=== PATIENT | female | born 1935 | race Caucasian/White ===

== ENCOUNTER 2025-01-24 16:22 | Inpatient (IN) | payer MEDICARE, BC, SELFPAY ==
[2025-01-24 13:03] VITALS: BP 109/63
[2025-01-24 14:07] VITALS: BMI 24.9
--- NOTE | 2025-01-24 14:08 | ED.GENMED ---
History of Present Illness
General
Chief Complaint: Skin Problem
Source: patient
Exam Limitations: none
Time Seen by Provider: 01/24/25 13:45
History of Present Illness
History of Present Illness:
89yo right hand dominant female with a history of atrial fibrillation, CHF, hypertension, hyperlipidemia, and AYDE on CPAP presenting for evaluation of a left middle finger infection. Patient was bitten by her son's dog 2 days ago. Dog is
domesticated and up-to-date on rabies vaccinations. She started to experience pain and redness to the finger yesterday. She was seen by her ward attendant and was started on a course of Augmentin. The area of redness was marked with a skin marker.
The redness is spreading to the dorsum of her hand today. She was seen at wound care and was sent to the ED for IV antibiotics. She denies any fevers or chills. No history of diabetes. Last Tdap in 2019.
Past History
Past History
ED Past Medical History: Arrthythmia (Atrial fib. On Xarelto), CHF, COPD, HTN and Hypercholesterolemia
ED Past Surgical History: Cardiac (Pacemaker )
Patient has exhibited threatening behavior?: No
PSI?: No
Social History
Tobacco: Non-smoker
Alcohol: None
Personal:
Living: with family
Employment: Retired
Family History
Family History: Other (Noncontributory)
Phy Exam
General Physical Exam
General Presentation: well appearing and no apparent distress
General age: appears stated age
General Skin: warm and dry
General Habitus: normal
General Mental: alert
ENT Exam
ENT Exam: normocephalic
Neurological Exam
Neurological Exam: alert
Musculoskeletal Exam
Musculoskeletal Exam: other (L middle finger: Gaping laceration noted to the proximal dorsal digit with puncture wounds distally. There is erythema and swelling throughout digit that extends to the dorsum of the hand. Not held in flexion and there
is no tenderness along the flexor sheath. )
Skin Exam
Skin Exam: warm/dry
Psychiatric Exam
Psychiatric Exam: normal mood/affect
Course
Orders/Labs/Results
Orders:
Orders
01/24/25 13:03
CR Hand - Left Min 3 Views Urgent
Comment:
Reason For Exam: dog bite, swelling
01/24/25 14:07
Acetaminophen [Tylenol] 650 mg PO NOW STA
01/24/25 14:26
Complete Blood Count/With Diff Urgent
01/24/25 14:49
Ampicillin/Sulbactam 3 G [Unasyn] 3 gm 0.9% Sodium Chloride 100 ml [Nss] 100 ml IV NOW
01/24/25 15:03
Comprehensive Metabolic Panel Urgent
01/24/25 15:54
Admit/Transfer Patient As Directed
Co-Sign Provider:
Level of Care: Inpatient admission
Assign to:: Medical/Surgical
Physician / Group: Htay
Diagnosis: Dog Bite Cellulitis
Reason for Hospitalization: IV abx
Expected length of stay greater than two midnights?: Yes
ELOS- Estimated Length of Stay in days: 3
I certify the patient meets the requirements for IP care: Yes
01/24/25 15:55
PRN Pain Medication Management As Directed
May give lesser potent ordered pain med per pt: Yes
preference::
Protocol:: Medication orders for pain may be administered in a
manner that supports deferring to patient preference
when the pt is:
- Requesting an ordered lesser potent pain medication.
Least to most potent pain medications are defined
as: acetaminophen < NSAID < tramadol < opioids
(morphine, oxycodone, hydromorphone).
- Requesting a lesser dose of the same medication IF
ORDERED.
- Requesting a less intrusive route of administration
if both routes are prescribed by the provider (PO <
IV).
01/24/25 15:56
Code Status As Directed
Resuscitation Status: Full Code
Abnormal Lab Results
01/24/25 01/24/25
14:26 15:03
MCHC 32.9 L g/dL
(33.0-37.0)
RDW 14.9 H %
(11.5-14.5)
BUN 33 H mg/dl
(7-17)
Glucose 110 H mg/dl
(70-99)
01/24/25 14:26
01/24/25 15:03
Vital Signs
Initial and Last Documented VS:
Initial Vital Signs
Temp Pulse Resp BP Pulse Ox
97.9 F 69 17 109/63 99
01/24/25 13:03 01/24/25 13:03 01/24/25 13:03 01/24/25 13:03 01/24/25 13:03
Last Documented Vital Signs
Temp Pulse Resp BP Pulse Ox
97.9 F 61 16 94/50 98
01/24/25 13:03 01/24/25 16:00 01/24/25 16:00 01/24/25 16:00 01/24/25 16:00
MDM/Problems Addressed
Differential Diagnosis Includes:
89yoF here with a L middle finger infection. Bit by son's dog 2 days ago. Started on Augmentin yesterday. Here with worsening redness/swelling. Sent here by wound care for IV abx. No f/c. VSS. She is well appearing in no distress. There is diffuse
erythema to the finger that extends to the dorsum of the hand. No fluctuance. Digit is not held in flexion and there is no tenderness along the flexor sheath. Differential diagnosis includes: cellulitis, infected dog bite, abscess, early flexor
tenosynovitis
Labs overall unremarkable including normal white count. X-rays of the hand are negative for fracture. IV Unasyn ordered. She was admitted for further management.
*Critical Care Note
Total Time (30-74mins, 75-104mins- exclusive of procedures): Not Applicable
ED Attending Note
-
Portions of this chart may have been created with voice recognition software.� Occasional wrong word or��sound alike� substitutions may have occurred due to the inherent limitations of voice recognition software.
Discharge Plan
Departure
Patient Disposition: Admit
Date of Disposition: 01/24/25
Time of Disposition: 15:34
Presentation/result/management discussed w/ accepting MD/DO: Hospitalist
Discharge Problem:
Dog bite of left hand including fingers with infection
Interventions
Interventions:
*Risk Screen - Suicide Last Done: 01/24/25 13:04
*General Assessment Last Done: 01/24/25 13:04
*Neglect/Abuse Screening Last Done: 01/24/25 13:04
*ED COVID-19 Vaccine History Last Done: 01/24/25 13:04
ED-Skin Assessment Last Done: 01/24/25 14:19
[2025-01-24] MEDS: TYLENOL 650 MG PO (14:16)
[2025-01-24 14:37] LABS: % Basophils 0.5 % (0-2); % Eosinophils 1.2 % (0-6); % Immature Granulocytes 0.2 % (0-0.5); % Lymphocytes 32.2 % (20.5-51.1); % Monocytes 5.6 % (1.7-9.3); % Neutrophils 60.3 % (42.2-75.2); Absolute Eosinophils 0.1 10^3/uL (0-0.7); Absolute Lymphocytes 1.8 10^3/uL (1.2-3.4); Absolute Monocytes 0.3 10^3/uL (0.1-0.6); Absolute Neutrophils 3.4 10^3/uL (1.4-6.5); Hematocrit 42.8 % (37.0-47.0); Hemoglobin 14.1 g/dL (12.0-16.0); Mean Corp Hgb Conc. 32.9 g/dL (33.0-37.0); Mean Corpuscular Hgb 29.9 pg (27.0-31.0); Mean Corpuscular Volume 90.7 fL (81.0-99.0); Mean Platelet Volume 9.5 fL (7.4-10.4); Nucleated Red Blood Cells % 0 %; Platelet Count 198 10^3/uL (130-400); Red Blood Cell Count 4.72 10^6/uL (4.20-5.40); Red Cell Dist. Width 14.9 % (11.5-14.5); White Blood Cell Count 5.7 10^3/uL (4.8-10.8)
[2025-01-24] MEDS: UNASYN IV ×2 (14:58→20:18)
[2025-01-24 15:29] LABS: ALT (SGPT) 19 U/L (0-35); AST (SGOT) 26 U/L (14-36); Albumin 4.4 g/dl (3.5-5.0); Alkaline Phosphatase 80 U/L (38-126); Blood Urea Nitrogen 33 mg/dl (7-17); Calcium 8.9 mg/dl (8.4-10.2); Carbon Dioxide 25 mmol/L (22-30); Chloride 102 mmol/L (98-107); Estimated Creatinine Clearance 43 ml/min; Glucose 110 mg/dl (70-99); Potassium 3.6 mmol/L (3.5-5.1); Sodium 137 mmol/L (135-145); Total Bilirubin 0.8 mg/dl (0.2-1.3); Total Protein 6.9 g/dl (6.3-8.2); eGFR > 60.00
--- NOTE | 2025-01-24 15:43 | HPS.HSE ---
Family Physician
-
Family Physician: Chapo Garcia
Chief Complaint
-
Left Hand Redness
History of Present Illness
Patient is an 89 y/o female past medical history of CHF, Pericardial Effusion, A-Fib, Hypertension and COPD who presents with left hand redness. Patient was bitten on her left long finger by her dog 2 days ago. She noted redness of the left hand
yesterday and was started on oral Augmentin at which time an outline of the redness was drawn. Patient was seen at the wound care center today who sent her to the emergency department for evaluation as the redness appeared to extend past the
previous outline. Patient denies fevers, sweats or chills.
Medical History
Past Medical History
Past Medical History: Reports Other
Additional Past Medical History:
Chronic Diastolic Heart Failure
Pericardial Effusion
Paroxysmal Atrial Fibrillation
Essential Hypertension
COPD
Restless Leg Syndrome
Past Surgical History: Reports Other
Additional Past Surgical History:
GIST Removal
Permanent Pacemaker
Pericardiocentesis
Social History
Tobacco: Non-smoker
Alcohol: None
Family History
Family History: Not pertinent
Allergies / Home Medications
Allergies reflects when Allergies were last updated in [employer].
Home Medications with original date entered in [employer]
Allergy/Medication List:
Allergies
Allergy/AdvReac Type Severity Reaction Status Date / Time
amiodarone Allergy Unknown Verified 06/27/23 20:41
spironolactone Allergy Rash Verified 06/27/23 20:41
Home Medications
dofetilide 500 mcg capsule 500 mcg PO BID Arrhythmia 10/03/22
albuterol sulfate 90 mcg/actuation breath activated powder inhaler (ProAir RespiClick) 2 inh inhalation R Q6HPRN PRN sob 01/24/25
amoxicillin 875 mg-potassium clavulanate 125 mg tablet 1 tab PO BID 01/24/25
azelastine 137 mcg (0.1 %) nasal spray 1 spray intranasal BIDPRN PRN allergies 01/24/25
cholecalciferol (vitamin D3) 50 mcg (2,000 unit) tablet (Vitamin D3) 50 mcg PO DAILY 01/24/25
empagliflozin 10 mg tablet (Jardiance) 10 mg PO DAILY 01/24/25
magnesium oxide 250 mg PO DAILY 01/24/25
rivaroxaban 15 mg tablet (Xarelto) 15 mg PO QPM 01/24/25
sacubitril 24 mg-valsartan 26 mg tablet (Entresto) 1 tab PO BID 01/24/25
torsemide 20 mg tablet 20 mg PO DAILY 01/24/25
Review of Systems
-
A 12 point ROS was completed and negative except as noted: Yes
Constitutional: Denies Fever or Chills
Respiratory: Denies Trouble Breathing
Cardiac: Denies Palpitations
Physical Exam
Vital Signs
Vital Signs
Temp Pulse Resp BP Pulse Ox
97.9 F 69 17 109/63 99
01/24/25 13:03 01/24/25 13:03 01/24/25 13:03 01/24/25 13:03 01/24/25 13:03
Physical Exam
General: Comfortable and Conversant
HEENT: Anicteric and Moist mucous membranes
Respiratory: Clear and Non Labored Respirations
Cardiac: S1/S2 and Regular Rhythm
GI: Soft and Non Tender
Rectal: Deferred by Provider
Musculoskeletal: No Clubbing and No Cyanosis
Skin: Other (Left long finger wrapped in james, visible puncture wound at the base of the left long finger, mild erythema extending to the dorsum of the hand with some extension passed the outline from yesterday)
Neuro: Awake, Alert, Oriented and Nonfocal/grossly intact
Psych: Calm
Laboratory Results
-
01/24/25 14:26
01/24/25 15:03
Laboratory Results
Total Bilirubin 0.8 mg/dl (0.2-1.3) 01/24/25 15:03
AST 26 U/L (14-36) 01/24/25 15:03
ALT 19 U/L (0-35) 01/24/25 15:03
Alkaline Phosphatase 80 U/L (38-126) 01/24/25 15:03
Data Reviewed
-
Lab Data: Labs Reviewed by me
Impression/Plan
-
Left Hand Cellulitis secondary to Dog Bite of Left Long Finger, failed outpatient antibiotics
-Continue Unasyn
-Consult Wound Care
Chronic Diastolic Heart Failure
-Continue Jardiance and Entresto
-Continue Torsemide
-Monitor daily weights
Paroxysmal Atrial Fibrillation
-Continue dofetilide
-Continue Xarelto
DVT proh: Xarelto
Code Status: Full Code
[2025-01-24 16:00] VITALS: BP 94/50
--- NOTE | 2025-01-24 16:41 | W.PN.UPDATE ---
Update Note
Progress Note Update
This note serves as an addendum to the H&P by circle beveler ZHOU Carla LINCOLN
89F with HX Prx AF on Xarelto and Tykosyn, HX CHF, HX GDMT ( Jardiance< Entesto, Torsemide,)HTN, HLD a/w infected dog bite wound at Lt middle finger 2 days ago. Augmentin was started yesterday. . Redness and swelling worsening today. Sent to ER
from wound care
Afebrile, non toxic
Dressed up Lt middle finger but noticed erythema at undressed site
Nl WCC
NEG Hand XR for FB or Fx
ASSESSMENT & PLAN
infected dog ( pet dog) bite wound of Lt middle finger with surrounding cellultis
- agree with IV Unasyn and observe
- PRN analgesia
Chr conditions; stable
HX Prx AF on Xarelto and Tikosyn
HX CHF o on GDMT ( Jardiance< Entesto, Torsemide,)
Essential HTN on Entresto
HLD diet control
DVT Px: SCD
Full code
IP MS
[2025-01-24 18:41] VITALS: BMI 24.9
--- NOTE | 2025-01-24 19:10 | PTCARENOTE ---
Pt. arrived from ED walking with tech. PtKory Caldwell, oriented to room and assessed. Understands plan of care, all questions answered.
[2025-01-24] MEDS: XARELTO 15 MG PO (20:18)
[2025-01-24] MEDS: TIKOSYN 500 MCG PO (20:20)
[2025-01-24] MEDS: ENTRESTO 24 MG/26 MG PO (20:44)
[2025-01-24] MEDS: ProAmatine 5 MG PO (21:00)
[2025-01-24 23:14] VITALS: BP 89/46
--- NOTE | 2025-01-24 23:30 | PTCARENOTE ---
Pt BP 86/38 manually. MANAGER OF HOSPITAL notified; okay to hold HS entresto. One time dose midodrine 5 mg ordered; see MAR for administration. Recheck BP 89/46. Pt asymptomatic at this time. Will monitor and continue plan of care.
[2025-01-25] VITALS (7 sets, daily range): BP systolic 89–108; BP diastolic 46–70; BMI 24.6
[2025-01-25] MEDS: UNASYN IV ×4 (02:33→19:54)
[2025-01-25 07:27] LABS: Hematocrit 36.9 % (37.0-47.0); Hemoglobin 12.5 g/dL (12.0-16.0); Mean Corp Hgb Conc. 33.9 g/dL (33.0-37.0); Mean Corpuscular Hgb 30.2 pg (27.0-31.0); Mean Corpuscular Volume 89.1 fL (81.0-99.0); Mean Platelet Volume 9.5 fL (7.4-10.4); Platelet Count 171 10^3/uL (130-400); Red Blood Cell Count 4.14 10^6/uL (4.20-5.40); Red Cell Dist. Width 14.6 % (11.5-14.5); White Blood Cell Count 4.1 10^3/uL (4.8-10.8)
--- NOTE | 2025-01-25 07:47 | W.PN.HOSP.TC ---
Addendum entered and electronically signed by Mal Holguin MD 01/25/25 14:24:
addendum
Updated daughter at bedside. Answered all questions
Insomnia, will give very low-dose of Ativan tonight
End
Original Note:
Today's Communication/Plan
-
c/w IV antibiotic
f/w ID and ortho input
Assessment / Plan
Assessment / Plan
Physical Exam
General: Comfortable and Conversant
HEENT: Anicteric and Moist mucous membranes
Respiratory: Clear and Non Labored Respirations
Cardiac: S1/S2
GI: Soft and Non Tender
Rectal:no rectal bleeding
Musculoskeletal: No Clubbing and No Cyanosis
Skin: Other (Left long finger wrapped in james, visible puncture wound at the base of the left long finger, mild erythema extending to the dorsum of the hand with some extension passed the outline from yesterday)
Neuro: Awake, Alert, Oriented and Nonfocal/grossly intact
Psych: Calm
A/P:
# left middle and ring finger domestic dog bite wound with surrounding cellulitis.
Middle finger is more than ring finger with swelling and tender with inability to flex.
-Continue Unasyn for now
c/w pain control w Tylenol
She reports up to date with tetanus shots.
Appreciate ID & orthopedic input.
#Chronic Diastolic Heart Failure
-Continue Jardiance
Low BP due to medications, will hold temporarily.
-Monitor daily weights
#Paroxysmal Atrial Fibrillation
-Continue dofetilide
-Continue Xarelto
DVT proh: Xarelto
Code Status: Full Code
Total time spent to see the patient, examine the patient, review data and lab results, discuss treatment plan with patient, nursing staff, consultants around 55 minutes
Anticipated Discharge: > 48 hours
Subjective/Interval History
-
Date of Service: January 25, 2025
Pain in her left fingers, still swelling
No fevers
No chills
No chest pain
Night team: low Bp
Objective Data
-
Labs:
Laboratory Results
01/25/25
07:01
WBC 4.1 L
Hgb 12.5
Hct 36.9 L
Plt Count 171
Sodium Pending
Potassium Pending
Chloride Pending
Carbon Dioxide Pending
BUN Pending
Creatinine Pending
Glucose Pending
Calcium Pending
Vital Signs:
Vital Signs
Temp Pulse Resp BP Pulse Ox
97.5 F 61 18 94/49 98
01/25/25 02:42 01/25/25 02:42 01/25/25 02:42 01/25/25 02:42 01/25/25 02:42
I&O
01/24/25 01/25/25 01/26/25
06:59 06:59 06:59
Intake Total 480 / 480
Balance 480 / 480
[2025-01-25 08:22] LABS: Blood Urea Nitrogen 31 mg/dl (7-17); Calcium 8.9 mg/dl (8.4-10.2); Carbon Dioxide 25 mmol/L (22-30); Chloride 106 mmol/L (98-107); Estimated Creatinine Clearance 49 ml/min; Glucose 101 mg/dl (70-99); Potassium 3.7 mmol/L (3.5-5.1); Sodium 140 mmol/L (135-145); eGFR > 60.00
[2025-01-25] MEDS: TIKOSYN 500 MCG PO ×2 (08:42→19:54)
--- NOTE | 2025-01-25 09:19 | W.PN.UPDATE ---
Update Note
Progress Note Update
Patient seen and examined by Orthopedic surgery. Full H&P to follow.
Assessment: 89-year-old [id number] female with left middle and ring finger dog bite wound with surrounding cellulitis. Patient endorses improvement since initiation of IV antibiotics.
Plan: No orthopedic surgical intervention required at this time. Recommend IV antibiotics (Unasyn) per primary team. Recommend warm soaks TID. Encourage digital range of motion as tolerated. Orthopedic surgery will continue to closely monitor
clinical picture and follow along.
--- NOTE | 2025-01-25 09:56 | CM ---
Patient seen at bedside.
dx: dog bite cellulitis
PMH: chf, afib, htn, copd
IA completed
Lives alone in a 1 story home, 1 step to enter
PLOF: Independent, no device
DME: walker, cane, CPAP
had [facility] in past, denies rehab
PCP: Chapo Jama
Pharmacy: [facility]
PLAN: Home, continue to follow for needs
--- NOTE | 2025-01-25 10:59 | WOUNDNOTE ---
LEFT INDEX FINGER
--- NOTE | 2025-01-25 11:00 | WOUNDNOTE ---
LEFT MIDDLE FINGER
--- NOTE | 2025-01-25 11:00 | WOUNDNOTE ---
LEFT MIDDLE POSTERIOR FINGER
--- NOTE | 2025-01-25 11:01 | WOUNDNOTE ---
MAHAD RN note: Patient admitted with dog bite to L hand and finger with infection.
See H&P for complete history.
PMH: Patient is an 89 y/o female past medical history of CHF, Pericardial Effusion, A-Fib, Hypertension and COPD who presents with left hand redness. Patient was bitten on her left long finger by her dog 2 days ago.
Wound Location and type/assessment: Patient admitted with: L middle finger with dog bite, full thickness ulcer, pink mixed with armando slough. Cellulitis and edema less since on IV abx per patient. Reviewed wound care and warm soaks with ortho Pa
[place] at bedside with wound nurse Krystal. Patient had been to [facility] and sent to ER for infected finger per nurse. Sacrum and heels intact, patient turns and ambulates self.
Appetite: Good.
Pressure redistribution devices in place: Accumax.
Plan: Warm soak done for 5-10 minutes, Xeroform and dry gauze dressing applied. Teaching done with patient regarding wound care and warm soaks. Ortho following and wound care will follow peripherally and assist as needed.
Confirmed orders with Ortho. Pa as above and updated nurse Joanna.
Updated care plan and will follow as needed.
Note to case management of equipment requested for discharge: None.
Recommend follow up at wound care center upon discharge.
--- NOTE | 2025-01-25 11:03 | CON.ORTHO ---
Consultation
-
Date/Time Consultation Requested: 01/25/2025 @ 7:40 AM
Date/Time Consultation Performed: 01/25/2025 @ 9:00 AM
Requesting Provider: Dr. Mal Holguin MD
Performing Provider: Raza Merida PA-C for Dr. Anthony Ascencio MD
Reason for Consultation: Left Hand Dog Bite Injury
Consultation - Orthopedics
History
Orthopedic Surgery Note
CC: Left Hand Dog Bite x Thursday01/22/25
HPI: The patient is a 89-year-old [id number] female with a past medical history significant for CHF, Pericardial Effusion, A-fib on Xarelto, Hypertension, and COPD who presented to [facility] Emergency Department yesterday with
left hand redness. She unfortunately sustained a dog bite injury to her left hand, specifically middle and ring fingers, this past Thursday. She went to her [facility] on Thursday, who prescribed Augmentin. She went to the wound center
yesterday, who recommended evaluation in the Emergency Department as the redness appeared to extend past the previous outline. She denies any fevers, chills or night sweats. She reports pain about the left middle and ring fingers. She denies any
paresthesias. She reports that the dog was her son's, who is up-to-date on vaccinations. Patient's last Tdap in 2019. She was started on IV Unasyn and local wound care was performed. Since initiation of IV antibiotics, she endorses improvement
in symptoms. Orthopedic surgery was consulted for further recommendations.
PMH/PSH: CHF, Pericardial Effusion, A-fib on Xarelto, Hypertension, COPD, Restless Leg Syndrome, GIST Removal, Permanent Pacemaker, Pericardiocentesis.
Medications: Reviewed.
Family History: Family history was reviewed. Noncontributory.
Social history: Nonsmoker, no illicit drugs.
Exam
General appearance: Pleasant. No acute distress.
Head: Normocephalic/atraumatic
Nose: No lesions or discharge.
Skin: See MSK.
Lungs: No audible wheezing, no cough or sputum production
Musculoskeletal:
LUE:
Physical examination of the left hand, with attention to the left middle and ring fingers, reveals dog bite wounds about the middle finger MCP joint (dorsal aspect), ring finger DIP (dorsal aspect), and ulnar aspect of the middle finger DIP/proximal
phalanx. There is an erythematous hue to the dorsum of the left hand, which is outlined with sharpie markings. No significant extension of erythema beyond markings. No expressible purulence. No fluctuance. There is a subtle deformity noted
about the middle finger distal phalanx, which patient reports is secondary to a previous injury. She is able to actively flex and extend middle finger DIP, PIP, and MCP joints, although diminished. She is able to actively flex and extend ring
finger DIP, PIP and MCP joints. She is unable to demonstrate a full composite fist, limited by middle finger swelling and discomfort. There is mild tenderness to palpation of the vicinity of the dog bite wounds. There is no reproducible
tenderness to palpation over the palmar aspect and flexor tendon sheath. She is able to wiggle all fingers. Fingers are pink and warm. Capillary refill is less than 2 seconds. Sensation to light touch. NVI distally.
Imaging: CR Hand - LEFT Min 3 Views was obtained at [facility] on 01/24/2025 and was made available for my review today. Findings: The included osseous structures appear intact without recent fracture, dislocation, or focal cortical bony
destructive process. Some mild degenerative changes are seen. There is no radiopaque soft tissue foreign body. Impression: No recent cortical fracture or radiopaque soft tissue foreign body.
Assessment: 89-year-old tjeck-nimf-wscuwizj female with left middle and ring finger dog bite wounds with surrounding cellulitis. Patient endorses improvement in symptoms since initiation of IV antibiotics. No concerns for flexor tenosynovitis.
Plan:
1) Continue with IV antibiotics per primary team; currently on Unasyn.
2) Warm soaks 5-10 minutes TID. Local wound care.
3) Pain control per primary team.
4) Ice therapy and elevation for edema control.
5) Encourage digital ROM as tolerated.
6) Orthopedic surgery will continue to follow along and closely monitor clinical picture.
Allergies / Home Medications
Allergy/AdvReac Type Severity Reaction Status Date / Time
amiodarone Allergy Unknown Verified 01/24/25 16:53
spironolactone Allergy Rash Verified 01/24/25 16:53
�Medication �Instructions �Recorded
dofetilide 500 mcg capsule 500 mcg PO BID Arrhythmia 10/03/22
albuterol sulfate 90 mcg/actuation 2 inh inhalation R Q6HPRN PRN sob 01/24/25
breath activated powder inhaler
(ProAir RespiClick)
amoxicillin 875 mg-potassium 1 tab PO BID Infection 01/24/25
clavulanate 125 mg tablet
azelastine 137 mcg (0.1 %) nasal 1 spray intranasal BIDPRN PRN 01/24/25
spray allergies
cholecalciferol (vitamin D3) 50 50 mcg PO DAILY Supplement 01/24/25
mcg (2,000 unit) tablet (Vitamin
D3)
empagliflozin 10 mg tablet 10 mg PO DAILY Diabetes 01/24/25
(Jardiance)
magnesium oxide 250 mg PO DAILY Supplement 01/24/25
rivaroxaban 15 mg tablet (Xarelto) 15 mg PO QPM Blood Clot 01/24/25
Prevention/Tx
sacubitril 24 mg-valsartan 26 mg 1 tab PO BID Heart Failure 01/24/25
tablet (Entresto)
torsemide 20 mg tablet 20 mg PO DAILY Fluid 01/24/25
Retention/Swelling
Vital Signs / Lab Results
Temp Pulse Resp BP Pulse Ox
97.5 F 61 16 95/46 96
01/25/25 08:02 01/25/25 08:02 01/25/25 08:02 01/25/25 08:02 01/25/25 08:02
01/25/25 07:01
01/25/25 07:01
[2025-01-25] MEDS: NON-FORMULARY ITEM 1 UNIT PO (12:24)
--- NOTE | 2025-01-25 13:07 | PTCARENOTE ---
patient denies pain at present, tolerating diet, has decreased ROM in left middle finger, left middle finger swollen, dressing c/d/i, independent in room ambulating frequently, vss, will continue to monitor.
--- NOTE | 2025-01-25 13:33 | CON.ID ---
Consultation
-
Date/Time Consultation Requested: January 25, 2025 0629
Date/Time Consultation Performed: January 25, 2025 1300
Requesting Provider: Dr. Mandi Holguin
Performing Provider: Dr. Jocelyne Milton
Reason for Consultation: Dog bite cellulitis
Chief Complaint / Past History
Chief Complaint
hand swelling
History of Present Illness
89-year-old female with history of atrial fibrillation, pacemaker placement, diastolic heart failure who presented to the hospital on January 24 due to worsening cellulitis after dog bite. She reports on Thursday, her son's dog bit her left hand over
the middle finger. The dog did not like being petted. Patient reached her hand to pet the dog when he bit her. Dog is fully vaccinated. Patient is up-to-date with her tetanus shot and 2019. The next day she noted drainage from the puncture
wound and redness with swelling of the fingers and hand. She saw her solar field service technician who prescribed Augmentin in marked the erythema. Erythema progressed slightly past the marked line. She saw her wound care physician on Thursday who sent her to the
ER. No fevers or chills. Hand x-ray without bony fracture or foreign body. She was started on Unasyn. Today she reports redness has not progressed. She has soreness of the finger.
Past History
Additional Past Medical History:
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
COPD
Atrial fibrillation
Pacemaker placement
Heart failure with preserved EF
Restless leg syndrome
GIST resection
Allergy History:
amiodarone Allergy (Verified 01/24/25 16:53)
Unknown
spironolactone Allergy (Verified 01/24/25 16:53)
Rash
Medications Reviewed: Yes
Current Antibiotics:
Unasyn
Social History
Tobacco: Non-Smoker
Alcohol: None
Drug: None
Family History
Family History: Not Pertinent
Review of Systems
Review of Systems
General: Negative Fever, Chills or Change in Appetite
HEENT: Negative Sinus Problems or Headache
Cardiovascular: Negative Chest Pain or Dyspnea
Respiratory: Negative Dyspnea or Cough
Gasteroenterology: Negative Nausea, Vomiting or Diarrhea
Genital / Urological: Negative Dysuria
Endocrine: Negative Weakness
Neurological: Negative Dizziness
All systems: All other systems were reviewed and were negative
Vital Signs
Temp Pulse Resp BP Pulse Ox
97.6 F 57 16 108/48 97
01/25/25 11:05 01/25/25 11:05 01/25/25 11:05 01/25/25 11:05 01/25/25 11:05
Physical Exam
Physical Exam
Constitutional: No Acute Distress and Comfortable
Eyes: No Conjunctival Hemorrhage and Sclera Anicteric
Cardiovascular: Regular Rate and S1/S2
Pulmonary: Clear
Gastrointestinal: Soft, Non Tender, Non Distended and Normal Bowel Sounds
Extremities: Other (Left hand: There are puncture manning on third and fourth fingers, worst being the proximal wound on third finger. Positive edema second, third, fourth fingers and dorsum of the hand with erythema.)
Neurological: AO x 3
Lab / Diagnostic Study Results
01/25/25 07:01
01/25/25 07:01
Abs Immat Gran (auto) 0.0 10^3/uL (0-0.05) 01/24/25 14:26
Absolute Neuts (auto) 3.4 10^3/uL (1.4-6.5) 01/24/25 14:26
Absolute Lymphs (auto) 1.8 10^3/uL (1.2-3.4) 01/24/25 14:26
Absolute Monos (auto) 0.3 10^3/uL (0.1-0.6) 01/24/25 14:26
Absolute Basos (auto) 0.0 10^3/uL (0-0.2) 01/24/25 14:26
Immature Gran % 0.2 % (0-0.5) 01/24/25 14:
Neutrophils % 60.3 % (42.2-75.2) 01/24/25 14:
Lymphocytes % 32.2 % (20.5-51.1) 01/24/25 14:
Monocytes % 5.6 % (1.7-9.3) 01/24/25 14:
Eosinophils % 1.2 % (0-6) 01/24/25 14:
Basophils % 0.5 % (0-2) 01/24/25 14:
Microbiology Results
Micro:
01/24/25 19:29 MRSA Screen - Pending
Nose
01/24/25 left hand XRAY: No recent cortical fracture or radiopaque soft tissue foreign body.
Assessment / Plan
# Left hand cellulitis due to dog bite.
-Up to date with tetanus vaccine.
- Agree with IV Unasyn.
- Keep hand elevated.
- Follow clinically
--- NOTE | 2025-01-25 14:43 | PTCARENOTE ---
patient's b/p 90/70 manually sitting in bed, asymptomatic. Dr. Holguin made aware, no new orders obtained at this time, will continue to monitor.
[2025-01-25] MEDS: XARELTO PO (17:25)
[2025-01-25] MEDS: XARELTO 15 MG PO (19:54)
[2025-01-25] MEDS: ENTRESTO 24 MG/26 MG 1 TAB PO (19:54)
[2025-01-25] MEDS: ATIVAN 0.25 MG PO (21:29)
--- NOTE | 2025-01-25 21:46 | PTCARENOTE ---
Warm water soak provided to left middle finger as ordered. New dressing applied as directed. Tylenol administered for pain. Pt ambulatory to the bathroom independently without difficulty. No issues to report at this time. Will continue to monitor.
[2025-01-25] MEDS: TYLENOL 650 MG PO (21:48)
[2025-01-26] MEDS: UNASYN IV ×4 (02:46→20:45)
[2025-01-26 03:00] VITALS: BP 97/53
[2025-01-26 03:25] VITALS: BMI 24.9
[2025-01-26 07:04] VITALS: BP 89/54
[2025-01-26] MEDS: ENTRESTO 24 MG/26 MG 1 TAB PO ×2 (08:11→20:44)
[2025-01-26] MEDS: TIKOSYN 500 MCG PO ×2 (08:11→20:45)
[2025-01-26] MEDS: NON-FORMULARY ITEM 1 UNIT PO (08:15)
--- NOTE | 2025-01-26 08:32 | W.PN.UPDATE ---
Update Note
Progress Note Update
Patient reports left hand has a little more swelling today. She is afebrile and no elevation in white count. Currently she is doing warm soaks. She has multiple bite manning about her hand. The primary 1 is over the dorsal aspect proximal
phalanx/MCP joint middle finger.. It is off center to the extensor tendon. She is able to flex and extend her fingers. Edema and ecchymosis noted. Generalized pain around the primary bite kelvin. Distal neurovascular was intact. I recommend she
continue with warm soaks, antibiotics per ID and observe until tomorrow.
--- NOTE | 2025-01-26 09:28 | W.PN.HOSP.TC ---
Today's Communication/Plan
-
.
Assessment / Plan
Assessment / Plan
Physical Exam
General: Comfortable and Conversant
HEENT: Anicteric and Moist mucous membranes
Respiratory: Clear and Non Labored Respirations
Cardiac: S1/S2
GI: Soft and Non Tender
Rectal:no rectal bleeding
Musculoskeletal: No Clubbing and No Cyanosis
Skin: Other (Left long finger wrapped in james, visible puncture wound at the base of the left long finger, mild erythema extending to the dorsum of the hand with some extension passed the outline from yesterday)
Neuro: Awake, Alert, Oriented and Nonfocal/grossly intact
Psych: Calm
A/P:
# left middle and ring finger domestic dog bite wound with surrounding cellulitis.
Middle finger is more than ring finger with swelling and tender with inability to flex.
-Continue Unasyn for now
c/w pain control w Tylenol
She reports up to date with tetanus shots.
Appreciate ID & orthopedic input.
#Chronic Diastolic Heart Failure
-Continue Jardiance
Low BP due to medications, will hold temporarily.
-Monitor daily weights
#Paroxysmal Atrial Fibrillation
-Continue dofetilide
-Continue Xarelto
DVT proh: Xarelto
Code Status: Full Code
Total time spent to see the patient, examine the patient, review data and lab results, discuss treatment plan with patient, nursing staff, consultants around 55 minutes
Anticipated Discharge: 24 - 48 hours
Subjective/Interval History
-
Date of Service: January 26, 2025
No worsening pain, but noticed swelling in fingers
Objective Data
-
Vital Signs:
Vital Signs
Temp Pulse Resp BP Pulse Ox
97.8 F 61 16 97/50 96
01/26/25 07:04 01/26/25 08:11 01/26/25 07:04 01/26/25 08:11 01/26/25 07:04
I&O
01/25/25 01/26/25 01/27/25
06:59 06:59 06:59
Intake Total 480 / 480 1640 / 1640
Balance 480 / 480 1640 / 1640
[2025-01-26 11:10] VITALS: BP 92/55
--- NOTE | 2025-01-26 12:59 | CM ---
Patient seen at beside
IV antibiotic
Discussed VN-declines currently
PLAN: Home, declined VN, will continue to follow
[2025-01-26 15:31] VITALS: BP 88/46
--- NOTE | 2025-01-26 15:51 | W.PN.ID1 ---
Date of Service
Date of Service: January 26, 2025
Today's Communication
Continue Unasyn
Assessment / Plan
# Left hand cellulitis due to dog bite.
-Up to date with tetanus vaccine.
- Keep hand elevated.
-Continue IV Unasyn (d3).
- Tomorrow anticipate transition to Augmentin.
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
COPD
Atrial fibrillation
Pacemaker placement
Heart failure with preserved EF
Restless leg syndrome
GIST resection
Chief Complaint
-: Cellulitis
Subjective / Review of Systems
No new complaints today. Hand feels somewhat better.
Vital Signs / Physical Exam
Vital Signs
Vital Signs
Temp Pulse Resp BP Pulse Ox
97.6 F 61 16 88/46 95
01/26/25 15:31 01/26/25 15:31 01/26/25 15:31 01/26/25 15:31 01/26/25 15:31
Physical Exam
Constitutional: No Acute Distress and Comfortable
Cardiovascular: Regular Rate and S1/S2
Pulmonary: Clear
Gastrointestinal: Soft, Non Tender and Non Distended
Extremities: Other (Right hand: decreased edema/erythema, middle finger with skin tear proximally, puncture wounds)
Objective Data
Lab Data
Lab Results
01/25/25 07:01
01/25/25 07:01
Estimated Creat Clear 49 ml/min 01/25/25 07:01
Total Bilirubin 0.8 mg/dl (0.2-1.3) 01/24/25 15:03
AST 26 U/L (14-36) 01/24/25 15:03
ALT 19 U/L (0-35) 01/24/25 15:03
Alkaline Phosphatase 80 U/L (38-126) 01/24/25 15:03
Most recent labs reviewed.
Micro Results:
01/24/25 21:37 MRSA Screen - Final
Nose No Methicillin Resistant Staphylococcus aureus isolated.
01/24/25 left hand XRAY: No recent cortical fracture or radiopaque soft tissue foreign body.
[2025-01-26] MEDS: TYLENOL 650 MG PO (16:14)
[2025-01-26] MEDS: XARELTO 15 MG PO (17:17)
[2025-01-26 19:36] VITALS: BP 98/56
[2025-01-26] MEDS: ATIVAN 0.25 MG PO (22:34)
[2025-01-26 23:09] VITALS: BP 101/55
[2025-01-27] MEDS: UNASYN IV ×3 (03:00→13:26)
[2025-01-27 03:08] VITALS: BP 106/60
[2025-01-27 06:43] VITALS: BMI 25.2
[2025-01-27 07:35] VITALS: BP 102/50
[2025-01-27] MEDS: DEMADEX 20 MG PO (07:51)
[2025-01-27] MEDS: NON-FORMULARY ITEM 1 UNIT PO (07:51)
[2025-01-27] MEDS: TIKOSYN 500 MCG PO (07:53)
--- NOTE | 2025-01-27 08:34 | W.PN.UPDATE ---
Addendum entered and electronically signed by Scott Hoff MD 01/27/25 08:39:
Patient seen and examined
Much improved
Continue with wound care, abx and ROM as tolerated
Follow up in the office in 1-2 weeks upon discharge
Original Note:
Update Note
Progress Note Update
Patient was seen and examined this morning with superficial lacerations and soft tissue swelling with significantly improved erythema. No surgical indications. Discussed range of motion to avoid any significant stiffness. Will place occupational
therapy consult and recommend outpatient follow-up in 1 week for wound check.
--- NOTE | 2025-01-27 08:37 | W.PN.HOSP.TC ---
Today's Communication/Plan
-
Hold Entresto with low BP, Will d/w her plate worker Dr Koroma at [place]
c/w Unasyn, good improvement.
Assessment / Plan
Assessment / Plan
Physical Exam
General: Comfortable and Conversant
HEENT: Anicteric and Moist mucous membranes
Respiratory: Clear and Non Labored Respirations
Cardiac: S1/S2
GI: Soft and Non Tender
Rectal:no rectal bleeding
Musculoskeletal: No Clubbing and No Cyanosis
Skin: Other (Left middle finger is less swelling and can bend more, left ring finger looks also better, able to bend better.
Neuro: Awake, Alert, Oriented and Nonfocal/grossly intact
Psych: Calm
A/P:
# left middle and ring finger domestic dog bite wound with surrounding cellulitis.
Very good improvement, still swollen but less, able now to flex fingers more. No throbbing pain, pain only upon moving
-Continue Unasyn for now
c/w pain control w Tylenol
She reports up to date with tetanus shots.
Appreciate ID & orthopedic input.
#Chronic Diastolic Heart Failure
-Continue Jardiance
Low BP due to medications noted, pt was recently started on Entresto by her [place] plate worker, she reports feeling shaky at home, likely hypotension, will c/w Torsemide,I called her plate worker office to discuss. , will hold temporarily.
-Monitor daily weights
#Paroxysmal Atrial Fibrillation
-Continue dofetilide
-Continue Xarelto
DVT proh: Xarelto
Code Status: Full Code
Total time spent to see the patient, examine the patient, review data and lab results, discuss treatment plan with patient, nursing staff, consultants around 55 minutes
Anticipated Discharge: Within 24 hours
Subjective/Interval History
-
Date of Service: January 27, 2025
No chest pain
No sob
Less pain in fingers, able to flex more
Objective Data
-
Vital Signs:
Vital Signs
Temp Pulse Resp BP Pulse Ox
97.6 F 61 16 102/50 100
01/27/25 07:35 01/27/25 07:35 01/27/25 07:35 01/27/25 07:35 01/27/25 07:35
I&O
01/26/25 01/27/25 01/28/25
06:59 06:59 06:59
Intake Total 1640 / 1640 1200 / 1200
Output Total 120 / 120
Balance 1640 / 1640 1080 / 1080
--- NOTE | 2025-01-27 09:59 | W.PN.ID1 ---
Date of Service
Date of Service: January 27, 2025
Today's Communication
-After 1400 dose IV Unasyn (d4), can transition to Augmentin 875 mg po bid through 02/02/25. (Can finish remaining home Augmentin)
Assessment / Plan
# Left hand cellulitis due to dog bite.
-Up to date with tetanus vaccine.
- Keep hand elevated.
-After 1400 dose IV Unasyn (d4), can transition to Augmentin 875 mg po bid through 02/02/25. (Can finish remaining home Augmentin)
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
COPD
Atrial fibrillation
Pacemaker placement
Heart failure with preserved EF
Restless leg syndrome
GIST resection
Chief Complaint
-: Cellulitis
Subjective / Review of Systems
Hand feels better.
Vital Signs / Physical Exam
Vital Signs
Vital Signs
Temp Pulse Resp BP Pulse Ox
97.6 F 61 16 102/50 100
01/27/25 07:35 01/27/25 07:35 01/27/25 07:35 01/27/25 07:35 01/27/25 07:35
Physical Exam
Constitutional: No Acute Distress and Comfortable
Cardiovascular: Regular Rate and S1/S2
Pulmonary: Clear
Gastrointestinal: Soft, Non Tender and Non Distended
Extremities: Other (Right hand/fingers: decreased edema/erythema, middle finger with skin tear proximally dry, puncture wounds stable)
Objective Data
Lab Data
Lab Results
01/25/25 07:01
01/25/25 07:01
Estimated Creat Clear 49 ml/min 01/25/25 07:01
Total Bilirubin 0.8 mg/dl (0.2-1.3) 01/24/25 15:03
AST 26 U/L (14-36) 01/24/25 15:03
ALT 19 U/L (0-35) 01/24/25 15:03
Alkaline Phosphatase 80 U/L (38-126) 01/24/25 15:03
Most recent labs reviewed.
Micro Results:
01/24/25 21:37 MRSA Screen - Final
Nose No Methicillin Resistant Staphylococcus aureus isolated.
01/24/25 left hand XRAY: No recent cortical fracture or radiopaque soft tissue foreign body.
Care Review
Plan reviewed with: Physician (Dr. Holguin)
[2025-01-27 11:16] VITALS: BP 112/58
[2025-01-27 11:35] VITALS: BP 112/58; BP 91/49; PULSE 60; O2SAT 100
--- NOTE | 2025-01-27 12:00 | CM ---
Addendum entered by Liyah Monzon 01/27/25 14:23:
Met with patient at bedside
IMM benefit explained; form signed @ 1420
Original Note:
Plan: discharge to home today; no services; daughter, Eileen, will transport home
--- NOTE | 2025-01-27 13:47 | W.DCSUMMARY ---
Discharge Summary
Discharge Data
Date of Admission: 01/24/25
Date of Discharge: 01/27/25
-
Pending Results: No
Hospital Course
89 years old female admitted with left to finger swelling, pain after a domestic dog bite. Patient was diagnosed with cellulitis of the left 2nd and 3rd fingers. X-ray of the hand did not show osseous erosions. Patient was evaluated by orthopedic
and infectious diseases doctors. She was started on intravenous antibiotic. The swelling in the fingers came down. She was able to flex her fingers better than before. She was seen by occupational therapist and given instructions about
movements. Patient was taking Augmentin at home. She was given intravenous Unasyn. She was advised to finish course of Augmentin at home. Patient was noticed to have low blood pressure. She reported that she was feeling shaky/imbalance at home
at times. She was recently started on Entresto. Entresto was held. Her primary box toe cementer was notified and recommended to hold it, patient will be followed in the outpatient setting. Patient remained hemodynamically stable. She was discharged
home in a stable condition.
Discharge Plan
-
Patient Disposition: Home (Routine Discharge)
Discharge Diagnosis/Procedures: Left hand cellulitis due to dog bite.
You were seen by orthopedic and ID doctors. You received IV Unasyn.
You had low blood pressure and we held Entresto. Check your blood pressure at home and follow-up with your primary box toe cementer.
Diet: As tolerated
Activity Restrictions/Additional Instructions:
Wound Care Instructions
L middle finger: Warm soak for 5-10 minutes 3 x per day, Xeroform and dry dressing after soaks until heals, then open to air.
Follow up at wound care center call for an appointment.
Referrals:
Rayo Koroma MD [Non-Admitting Privileges] - in two to four weeks
Chapo Garcia DO [Family Provider] -
Scott Hoff MD [Active] - (f/u 1 week from discharge for wound check)
Prescriptions:
Continued
dofetilide 500 mcg capsule
500 mcg PO BID
torsemide 20 mg Tablet
20 mg PO DAILY
azelastine 137 mcg (0.1 %) [place],Non-Aerosol
1 spray INTRANASAL BIDPRN PRN (Reason: allergies)
amoxicillin-pot clavulanate 875-125 mg Tablet
1 tab PO BID
magnesium oxide 250 mg magnesium Tablet
250 mg PO DAILY
Xarelto 15 mg Tablet
15 mg PO QPM
Jardiance 10 mg Tablet
10 mg PO DAILY
ProAir RespiClick 90 mcg/actuation Aerosol Powdr Breath Activated
2 inh INHALATION R Q6HPRN PRN (Reason: sob)
cholecalciferol (vitamin D3) [Vitamin D3] 50 mcg (2,000 unit) Tablet
50 mcg PO DAILY
Discontinued
Entresto 24-26 mg Tablet
1 tab PO BID
Discharge Orders:
Discharge Patient (As Directed); Ordered 01/27/25
Ordered By: Mal Holguin
Discharge Date and Time
Discharge Date/Time: 01/27/25 14:57
Print Language: PERSIAN
[2025-01-27 14:05] VITALS: BP 93/50
== END 2025-01-27 14:57 | disposition home or self-care (01) | DRG 605 ==
LOC: 3 WEST ACU 16:22
PROVIDERS: Physician Assistant; Physician Assistant Medical; ADMITTING PHYSICIAN Internal Medicine; ATTENDING PHYSICIAN Internal Medicine; CONSULT PHYSICIAN Orthopaedic Surgery; EMERGENCY PHYSICIAN Emergency Medicine; FAMILY PHYSICIAN Family Medicine; OTHER PHYSICIAN Internal Medicine Infectious Disease
DX: S61.253A Open bite of left middle finger without damage to nail, initial encounter (principal); L03.114 Cellulitis of left upper limb; I50.32 Chronic diastolic (congestive) heart failure; W54.0XXA Bitten by dog, initial encounter; M79.89 Other specified soft tissue disorders; I48.0 Paroxysmal atrial fibrillation; Z79.01 Long term (current) use of anticoagulants; I11.0 Hypertensive heart disease with heart failure; G47.00 Insomnia, unspecified; J44.9 Chronic obstructive pulmonary disease, unspecified; Z95.0 Presence of cardiac pacemaker; G25.81 Restless legs syndrome; Z60.2 Problems related to living alone
CPT/HCPCS: 73130; 80048; 80053; 85025; 85027; 87070; 96374; 97110; 97166; 99204; 99285

== ENCOUNTER → 2025-02-13 15:49 | Outpatient (REF) | payer MEDICARE, BC, SELFPAY | LOC: RAD 15:49 | PROVIDERS: ATTENDING PHYSICIAN Physician Assistant Surgical; FAMILY PHYSICIAN Family Medicine | DX: M54.9 Dorsalgia, unspecified (principal) | CPT/HCPCS: 72082 ==

== ENCOUNTER → 2025-02-14 09:36 | Outpatient (REF) | payer MEDICARE, BC, SELFPAY | LOC: WOUND 09:36 | PROVIDERS: ATTENDING PHYSICIAN Surgery; FAMILY PHYSICIAN Family Medicine | DX: S61.452A Open bite of left hand, initial encounter (principal); W54.0XXA Bitten by dog, initial encounter; L03.114 Cellulitis of left upper limb; M65.842 Other synovitis and tenosynovitis, left hand; Z95.0 Presence of cardiac pacemaker | CPT/HCPCS: 99213 ==